=== PATIENT | female | born 1935 ===

== ENCOUNTER 2018-06-16 09:57 | Inpatient (IN) ==
--- NOTE | 2018-06-16 10:42 | P.HPUP ---
The Pre-Admit History and Physical Examination regarding the above named patient was reviewed (including, but not limited to, vital signs, heart, lungs, co-morbid conditions), and upon re-examination it is noted that: the patient's condition has not significantly changed since the last examination.
[2018-06-16] MEDS ORDERED: Metoprolol Tartrate 25 MG Tablet PO ONE (10:45)
[2018-06-16] MEDS ORDERED: Chlorhexidine Gluconate 2% 1 Pack (2 Cloths) TOPICAL ONE (10:45)
[2018-06-16] MEDS ORDERED: Sodium Chlor 0.9% Inj 500 ML IV.CONT ONE (10:45)
--- NOTE | 2018-06-16 11:15 | XR ---
EXAM DATE: 06/16/2018 11:05 AM EST AGE/SEX: 83 years / Female INDICATIONS: Evaluate for pneumonia, pneumothorax, or communicable disease. Pre op for colectomy. CLINICAL DATA: This is the patient's initial encounter. Patient reports that signs and symptoms have been present for 1 day and indicates a pain score of 0/10. MEDICAL/SURGICAL HISTORY: None. None. COMPARISON: . FINDINGS: A single AP view of the chest demonstrates the lungs to be symmetrically aerated without evidence of mass, infiltrate or effusion. The cardiomediastinal contours are unremarkable. Osseous structures a re intact. CONCLUSION: Negative examination. Electronically signed by: Hawk Bingham MD Board Certified Radiologist 06/16/2018 11:14 AM EST
[2018-06-16] MEDS ORDERED: ceFAZolin 1 GM Premix Inj 1 GM/50 ML PIGGYBACK IV.SIG SCH (12:00)
[2018-06-16] MEDS ORDERED: Dextrose 5%/NaCl 0.9% Inj 1,000 ML IV.SIG SCH (12:00)
[2018-06-16] MEDS ORDERED: Albumin Human 5% Inj 500 ML IV.SIG ONE (12:19)
[2018-06-16] MEDS ORDERED: fentaNYL Citrate Inj 100 MCG/2 ML Ampul ONE (12:20)
[2018-06-16] MEDS ORDERED: Famotidine PF Inj 20 MG/2 ML Vial ONE (12:20)
[2018-06-16] MEDS ORDERED: Ketamine Inj 50 MG/5 ML Syringe IV.PUSH ONE (12:20)
[2018-06-16] MEDS ORDERED: Bupivacaine 0.5% Inj 50 ML MDV Vial ONE (12:29)
[2018-06-16] MEDS ORDERED: Naloxone Inj 0.4 MG/ML Vial IV.PUSH PRN (14:14)
[2018-06-16] MEDS ORDERED: Potassium Chlor 40 mEq Premix 40 MEQ/100 ML PIGGYBACK IV.SIG PRN (14:14)
[2018-06-16] MEDS ORDERED: Ketorolac Inj 30 MG/ML (IVP) Vial IV.PUSH PRN (14:14)
[2018-06-16] MEDS ORDERED: Potassium Chlor 20 mEq Premix 20 MEQ/100 ML PIGGYBACK IV.SIG PRN (14:14)
[2018-06-16] MEDS ORDERED: Sugammadex Inj 200 MG/2 ML Vial IV.PUSH ONE (14:22)
[2018-06-16] MEDS ORDERED: *morphine SULFATE 4 MG/ML PERIprocedure ONLY ONE ×3 (14:26→14:49)
[2018-06-16] MEDS ORDERED: KCL 20 mEq/D5W/NaCl 0.9% Inj 1,000 ML ONE (14:44)
[2018-06-16] MEDS: KCL 20 mEq/D5W/NaCl 0.9% Inj 1,000 ML IV.CONT SCH ×2 (14:52→20:54)
[2018-06-16] MEDS: Morphine Inj 30 MG/30 ML PCA.VIAL PCA PRN (14:52)
[2018-06-16] MEDS ORDERED: HYDROmorphone PF Inj 0.5 MG/0.5 ML Syringe ONE (15:02)
--- NOTE | 2018-06-16 15:49 | ECG ---
Date Performed: 06/16/2018 Time Performed: 11:05:10 PTAGE: 83 years EKG: Sinus rhythm NORMAL ECG NO PREVIOUS TRACING DOCTOR: Mikaela Gan Interpretating Date/Time 06/16/2018 15:46:45
[2018-06-16] MEDS: ceFAZolin 1 GM Premix Inj 1 GM/50 ML PIGGYBACK IV.SIG SCH ×2 (18:00→23:50)
[2018-06-17] MEDS: KCL 20 mEq/D5W/NaCl 0.9% Inj 1,000 ML IV.CONT SCH ×3 (02:24→17:11)
[2018-06-17] MEDS: ceFAZolin 1 GM Premix Inj 1 GM/50 ML PIGGYBACK IV.SIG SCH (05:45)
[2018-06-17 06:51] LABS: Baso % (Auto) 0.1 % (0.0-2.0); Eos % (Auto) 0.2 % (0.0-4.0); Hematocrit 32.8 % (35.0-46.0); Hemoglobin 10.6 gm/dL (11.6-15.3); Lymph # (Auto) 0.9 th/mm3 (1.0-4.8); Lymph % (Auto) 10.1 % (9.0-44.0); Mean Corpuscular HGB Conc 32.2 % (32.0-36.0); Mean Corpuscular Hemoglobin 27.5 pg (27.0-34.0); Mean Corpuscular Volume 85.2 fL (80.0-100.0); Mean Platelet Volume 8.3 fL (7.0-11.0); Mono # (Auto) 0.8 th/mm3 (0.0-0.9); Mono % (Auto) 8.8 % (0.0-8.0); Neut # (Auto) 7.5 th/mm3 (1.8-7.7); Neut % (Auto) 80.8 % (16.0-70.0); Platelet Count 173 th/mm3 (150-450); Red Blood Count 3.85 mil/mm3 (4.00-5.30); Red Cell Distribution Width 14.4 % (11.6-17.2); White Blood Count 9.2 th/mm3 (4.0-11.0)
[2018-06-17 07:05] LABS: Calcium 7.7 mg/dL (8.5-10.1); Carbon Dioxide 25.6 meq/L (21.0-32.0); Potassium 3.8 meq/L (3.5-5.1)
--- NOTE | 2018-06-17 07:36 | P.PNCS ---
Subjective Colorectal Surgery Post Op Day #: 1 Interval history: afebrile, VSS UO good Objective Result Diagrams: 06/17/18 05:38 06/17/18 05:38 Objective Remarks: PE alert Abd - soft, flat, wound dry, no tympany Assessment and Plan - Plan Imp: stable post-op OOB decr IVF tx to floor
--- NOTE | 2018-06-17 08:17 | MP ---
cc: Papo White MD, Andrew H MD DATE OF OPERATION: 06/16/2018 PREOPERATIVE DIAGNOSIS: Carcinoma of the ascending colon. PROCEDURE: Exploratory laparotomy with ascending colectomy. POSTOPERATIVE DIAGNOSIS: Carcinoma of the ascending colon. SURGEON: Papo White MD. APPLICATION PROCESSOR: Juan Louise MD. DETAILS OF PROCEDURE: The patient was placed in the supine position. After adequate general anesthesia, her abdomen was prepped with Betadine solution and draped in the usual sterile fashion. With Dr. Louise's assistance, the abdomen was opened through a transverse incision, dividing the rectus muscles with electrocautery. Exploration revealed a rather bulky tumor of the ascending colon with signs of serosal puckering. The tumor was quite mobile and was not stuck to any surrounding structures. The distal colon was palpated very carefully and, except for a redundant sigmoid loop, there was no sign of any other mass palpable. The small bowel was run from ligament of Treitz down to the ileocecal valve and felt to be normal. The liver was palpated and did have some benign looking cysts in both lobes, but was otherwise unremarkable. No masses were appreciated. The gallbladder was empty and had no stones. The stomach and duodenum were normal. The uterus and ovaries were appropriate for the patient's age. Great vessels were of normal caliber and slightly calcified. First, the right colon was mobilized medially by dividing along the white line of Toldt. The right ureter was identified and carefully preserved. Dissection then proceeded up the right gutter, taking down attachments to the hepatic flexure, entering the lesser, sac and mobilizing the gastrocolic omentum off the transverse colon. The bowel was then divided in the right side of the transverse colon using the MARIA EUGENIA stapler. The intervening mesenteric vessels were taken between Rosy's obtaining hemostasis with Vicryl ties. The bowel was then divided in the terminal ileum again using the MARIA EUGENIA stapling device. There did appear to be some palpable nodes along the ileocolic chain and these were included in the specimen. Bowel continuity was then restored by firing the MARIA EUGENIA stapler across the antimesenteric ends of the bowel, closed the enterotomy with a TA 60 stapler. The mesenteric defect closed with a running Vicryl suture. A 3-0 Vicryl crotch suture was placed as well. The abdomen was irrigated copiously and hemostasis achieved at all sites. The transverse incision was closed anatomically in 2 layers using #1 PDS sutures to reapproximate the respective fascial layers. ON-Q catheters were placed into the rectus sheaths on both sides and brought up through a subcutaneous tunnel above the transverse incision. The subcutaneous tissue was irrigated copiously and the skin closed with a running Vicryl suture. The wound area washed with normal saline and dried, sterile dressing of Telfa gauze applied. The patient tolerated the procedure quite well and was brought to the recovery room in stable condition. Sponge and needle counts were correct at the end of the procedure. Papo White MD AHR/ts , 07:47 AM , 07:56 AM
[2018-06-17] MEDS: Pantoprazole Inj 40 MG Vial IV.PUSH SCH (10:53)
[2018-06-17] MEDS: Heparin - SQ 10,000 UNITS/ML Vial SQ SCH (12:44)
[2018-06-17] MEDS: Morphine Inj 30 MG/30 ML PCA.VIAL PCA PRN (16:22)
[2018-06-18] MEDS: Heparin - SQ 10,000 UNITS/ML Vial SQ SCH ×3 (00:23→23:52)
[2018-06-18] MEDS: KCL 20 mEq/D5W/NaCl 0.9% Inj 1,000 ML IV.CONT SCH ×2 (04:33→15:27)
[2018-06-18 04:40] LABS: Baso % (Auto) 0.2 % (0.0-2.0); Eos # (Auto) 0.2 th/mm3 (0.0-0.4); Eos % (Auto) 1.5 % (0.0-4.0); Hematocrit 31.9 % (35.0-46.0); Hemoglobin 10.5 gm/dL (11.6-15.3); Lymph # (Auto) 1.5 th/mm3 (1.0-4.8); Lymph % (Auto) 14.1 % (9.0-44.0); Mean Corpuscular Hemoglobin 27.6 pg (27.0-34.0); Mean Corpuscular Volume 83.6 fL (80.0-100.0); Mean Platelet Volume 8.2 fL (7.0-11.0); Mono % (Auto) 9.5 % (0.0-8.0); Neut # (Auto) 7.9 th/mm3 (1.8-7.7); Neut % (Auto) 74.7 % (16.0-70.0); Platelet Count 194 th/mm3 (150-450); Red Blood Count 3.82 mil/mm3 (4.00-5.30); Red Cell Distribution Width 14.6 % (11.6-17.2); White Blood Count 10.5 th/mm3 (4.0-11.0)
[2018-06-18 05:15] LABS: Anion Gap 7 meq/L (5-15); Blood Urea Nitrogen 2 mg/dL (7-18); Calcium 7.8 mg/dL (8.5-10.1); Carbon Dioxide 27.9 meq/L (21.0-32.0); Chloride 107 meq/L (98-107); Glomerular Filtration Rate Greater Than 89 mL/min (>89); Glucose,Random 131 mg/dL (74-106); Potassium 3.1 meq/L (3.5-5.1); Sodium 142 meq/L (136-145)
--- NOTE | 2018-06-18 07:34 | P.PNCS ---
Subjective Colorectal Surgery Post Op Day #: 2 Interval history: afebrile, VSS UO good min flatus Objective Result Diagrams: 06/18/18 03:59 06/18/18 03:59 Objective Remarks: PE alert Abd - soft, flat, wound dry, no tympany Assessment and Plan - Plan Imp: OOB decr IVF start PO
[2018-06-18] MEDS ORDERED: Melatonin 5 MG Tablet PO PRN (07:35)
[2018-06-18] MEDS: Pantoprazole Inj 40 MG Vial IV.PUSH SCH (08:24)
[2018-06-19] MEDS: Heparin - SQ 10,000 UNITS/ML Vial SQ SCH ×2 (00:40→13:52)
[2018-06-19] MEDS: KCL 20 mEq/D5W/NaCl 0.9% Inj 1,000 ML IV.CONT SCH (05:06)
[2018-06-19 08:32] LABS: Anion Gap 8 meq/L (5-15); Blood Urea Nitrogen 5 mg/dL (7-18); Calcium 8.5 mg/dL (8.5-10.1); Carbon Dioxide 27.9 meq/L (21.0-32.0); Chloride 104 meq/L (98-107); Glomerular Filtration Rate Greater Than 89 mL/min (>89); Glucose,Random 89 mg/dL (74-106); Potassium 3.1 meq/L (3.5-5.1); Sodium 140 meq/L (136-145)
[2018-06-19] MEDS: Pantoprazole Inj 40 MG Vial IV.PUSH SCH (09:01)
--- NOTE | 2018-06-19 11:42 | P.PNCS ---
Subjective Colorectal Surgery Post Op Day #: 3 Interval history: s/p ascending colectomy comfortable, some confusion Objective Result Diagrams: 06/18/18 03:59 06/19/18 06:22 Objective Remarks: Abd - soft, flat, wound dry, nondistended pain pump removed Assessment and Plan - Plan HL IV Home soon
[2018-06-19] MEDS ORDERED: Acetaminophen 325 MG Tablet PO PRN (23:25)
[2018-06-20] MEDS: Heparin - SQ 10,000 UNITS/ML Vial SQ SCH ×2 (00:54→13:05)
[2018-06-20] MEDS: Pantoprazole Inj 40 MG Vial IV.PUSH SCH (09:02)
--- NOTE | 2018-06-20 11:42 | P.PNCS ---
Subjective Colorectal Surgery Post Op Day #: 4 Interval history: s/p ascending colon Objective Result Diagrams: 06/18/18 03:59 06/19/18 06:22 Objective Remarks: Abd - soft, flat, wound dry, nondistended Assessment and Plan - Plan Advance diet Add Captopril Consult Case Management re possible Rehab vs Home PT
[2018-06-20] MEDS ORDERED: Melatonin 5 MG Tablet PO SCH (21:00)
[2018-06-21 00:34] VITALS: TEMP 98.1
[2018-06-21] MEDS: Heparin - SQ 10,000 UNITS/ML Vial SQ SCH (00:35)
[2018-06-21] MEDS: Pantoprazole Inj 40 MG Vial IV.PUSH SCH (10:14)
[2018-06-21 12:04] VITALS: BP 154/73; PULSE 80; RESP 17; O2SAT 99
--- NOTE | 2018-06-21 13:41 | P.PNCS ---
Subjective Colorectal Surgery Post Op Day #: 5 Interval history: afebrile, VSS UO good Mult BM Objective Result Diagrams: 06/18/18 03:59 06/19/18 06:22 Objective Remarks: Abd - soft, flat, wound dry, nondistended Assessment and Plan - Plan Advance diet DC plans rto 1 week
== END 2018-06-21 13:44 | disposition home or self-care (01) ==
LOC: HSDI 09:57 → HCIS 19:40 → N07 06-17 17:39
PROVIDERS: ADMIT Colon & Rectal Surgery; ATTEND Colon & Rectal Surgery
DX: C18.2 Malignant neoplasm of ascending colon